=== PATIENT | female | born 1995 | race Caucasian/White ===

== ENCOUNTER 2018-08-17 06:50 | Emergency (ER) | payer OTHER ==
[~2018-08-17] VITALS: Ht 149.9 cm; Wt 81.6 kg
--- OUTSIDE RECORDS SUMMARY | 2018-08-17 06:53 | XMS REPORT | Clinical Summary ---
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 10/30/2017 acetaminophen-codeine Take 1 tablet 20 tablet 0 (TYLENOL WITH CODEINE #3) by mouth 8 300-30 mg per tablet every 6 (six) hours as needed (severe pain) for up to 20 doses. 11/07/2017 ibuprofen (ADVIL,MOTRIN) Take 1 tablet 20 tablet 0 400 MG tablet (400 mg 8 total) by mouth every 6 (six) hours as needed for mild pain or moderate pain for up to 15 days. 11/07/2017 artifi.tears,hypromellose Apply 2 drops 10 mL 0 ,,PF, 0.3 % drops to eye 3 8 (three) times a day as needed (dry eyes) for up to 15 days. 10/30/2017 tobramycin (TOBREX) 0.3 % Administer 2 5 mL 0 drops drops to the 8 right eye every 4 (four) hours for 7 days. Active Problems Not on file Encounters Care Team Description Date Type Specialty Aidan Hollingsworth DO Abrasion of right cornea, initial encounter (Primary Dx) 10/23/2017 Emergency Emergency Medicine after 08/16/2017 Social History Date Tobacco Use Types Packs/Day Years Used Never Smoker Smokeless Tobacco: Never Used Alcohol Use Drinks/Week oz/Week Comments No Sex Assigned at Date Recorded Not on file Industry Job Start Date Occupation Not on file Not on file Not on file Travel End Travel History Travel Start No recent travel history available. Last Filed Vital Signs Time Taken Vital Sign Reading 10/23/2017 9:00 PM [employer] Blood Pressure 107/65 10/23/2017 9:00 PM [employer] Pulse 70 10/23/2017 6:08 PM [employer] Temperature 37.1 C (98.7 F) 10/23/2017 9:00 PM [employer] Respiratory Rate 20 10/23/2017 9:00 PM [employer] Oxygen Saturation 98% - Inhaled Oxygen - Concentration 10/23/2017 6:08 PM [employer]IE[employer] Weight 68 kg (150 lb) 10/23/2017 6:08 PM [employer]IE[employer] Height 149.9 cm (4' 11") 10/23/2017 6:08 PM [employer]IE[employer] Body Mass Index 30.3 Plan of Treatment Not on file Results Not on fileafter 08/16/2017 Insurance Payer Benefit Subscriber ID Type Phone Address Plan / Group [employer] [facility] xxxxxxxxx O [facility] Advance Directives Patient has advance care planning documents on file. For more information, mikaela wynne contact: Shawn Escudero [address] [place] [address]
--- OUTSIDE RECORDS SUMMARY | 2018-08-17 06:53 | XMS REPORT | Clinical Summary ---
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 Last Filed Vital Signs Not on file Plan of Treatment Not on file Results Not on fileafter 08/16/2017
[2018-08-17 08:27] LABS: CLARITY,URINE HAZY (CLEAR); COLOR,URINE YELLOW (YELLOW); LEUKOCYTE ESTERASE ,URINE TRACE (NEGATIVE); NITRITE,URINE NEGATIVE (NEGATIVE)
[2018-08-17 08:28] LABS: BILIRUBIN,URINE NEGATIVE (NEGATIVE); KETONES,URINE NEGATIVE (NEGATIVE); PROTEIN,URINE DIPSTICK NEGATIVE (NEGATIVE); URINE UROBILINOGEN 0.2 mg/dL (0.2 - 1)
[2018-08-17 08:34] LABS: BACTERIA,URINE FEW /HPF; EPITHELIAL CELLS,URINE MODERATE /LPF; RBC,URINE 0-5 /HPF (0-5); WBC,URINE (MAN) 0-5 /HPF (0-5)
== END 2018-08-17 12:30 | disposition other institution (70) ==
LOC: ER 06:50
DX: O26.892 Other specified pregnancy related conditions, second trimester (principal); W86.0XXA Exposure to domestic wiring and appliances, initial encounter; R10.84 Generalized abdominal pain; Y92.008 Other place in unspecified non-institutional (private) residence as the place of occurrence of the external cause
CPT/HCPCS: 81001; 99284